=== PATIENT | female | born 1995 | race African-American/Black ===

== ENCOUNTER 2022-01-28 22:19 | Emergency (ER) | payer OTHER ==
[~2022-01-28] VITALS: Ht 157.5 cm; Wt 72.6 kg
[2022-01-28] MEDS ORDERED: CLINDAMYCIN HY300 MG PO (23:10)
[2022-01-28 23:30] VITALS: BP 117/70; TEMP 98.6
== END 2022-01-28 23:30 | disposition home or self-care (01) ==
LOC: ED 22:19
DX: M27.3 Alveolitis of jaws (principal); R25.2 Cramp and spasm
CPT/HCPCS: 96372; 99282; J1885

== ENCOUNTER 2022-07-13 18:47 | Emergency (ER) | payer OTHER ==
[~2022-07-13] VITALS: Ht 157.5 cm; Wt 71.7 kg
[~2022-07-13 18:47] MED LIST: CLINDAMYCIN HY300 MG PO
[2022-07-13 18:53] VITALS: BP 123/84; TEMP 97.9
== END 2022-07-13 21:15 | disposition home or self-care (01) ==
LOC: ED 18:47
DX: S00.33XA Contusion of nose, initial encounter (principal); W22.8XXA Striking against or struck by other objects, initial encounter; Y92.89 Other specified places as the place of occurrence of the external cause
CPT/HCPCS: 81025; 99283